=== PATIENT | male | born 1965 | race African-American/Black ===

== ENCOUNTER 2019-03-22 12:02 | Inpatient (IN) | payer MEDICARE, MEDICAID ==
[~2019-03-22] VITALS: Ht 182.9 cm; Wt 82.6 kg
--- NOTE | 2019-03-22 12:02 | NUR ---
pt bib private ambulance from [facility] on 5150 hold dts/o. pt refusing meds over there.
--- NOTE | 2019-03-22 12:04 | NUR ---
pt refuses blood draw, aware.
[2019-03-22] MEDS ORDERED: OLANZAPINE 5 MG TABLET PO ONE (12:15)
--- NOTE | 2019-03-22 12:16 | NUR ---
pt refuses md mirella aware.
--- NOTE | 2019-03-22 12:20 | NUR ---
pt medically cleared to go to [facility]. transfer pending on bed availability.
--- NOTE | 2019-03-22 12:22 | NUR ---
pt eating hospital sandwich with good apetite.
[2019-03-22] MEDS ORDERED: TEMAZEPAM 7.5 MG CAPSULE PO PRN (14:15)
[2019-03-22] MEDS ORDERED: MAGNESIUM HYDROXIDE 30 ML LIQUID UDC PO PRN (14:15)
[2019-03-22] MEDS ORDERED: ACETAMINOPHEN 325 MG TABLET PO PRN (14:15)
[2019-03-22] MEDS: DIVALPROEX 250 MG TABLET.DR PO SCH ×3 (14:30→20:22)
[2019-03-22] MEDS ORDERED: risperiDONE 0.5 MG TABLET PO SCH (14:30)
[2019-03-22] MEDS: risperiDONE 1 MG TABLET PO SCH ×3 (14:45→20:22)
[2019-03-22 15:18] VITALS: BP 139/101
[2019-03-22] MEDS: BENZTROPINE MESYLATE 0.5 MG TABLET PO SCH ×2 (20:13→20:22)
[2019-03-22 20:42] VITALS: BP 120/86
[2019-03-23 07:30] VITALS: BP 126/85
[2019-03-23] MEDS: BENZTROPINE MESYLATE 0.5 MG TABLET PO SCH ×2 (08:20→20:36)
[2019-03-23] MEDS: DIVALPROEX 250 MG TABLET.DR PO SCH ×2 (08:20→20:36)
[2019-03-23] MEDS: risperiDONE 1 MG TABLET PO SCH ×2 (08:21→20:36)
[2019-03-23 16:00] VITALS: BP 121/76
[2019-03-23 20:59] VITALS: BP 109/76
[2019-03-24 07:30] VITALS: BP 123/78
[2019-03-24] MEDS: risperiDONE 1 MG TABLET PO SCH ×2 (08:24→21:00)
[2019-03-24] MEDS: BENZTROPINE MESYLATE 0.5 MG TABLET PO SCH ×2 (08:24→21:00)
[2019-03-24] MEDS: DIVALPROEX 250 MG TABLET.DR PO SCH ×2 (08:24→21:00)
--- NOTE | 2019-03-24 11:37 | NUR ---
Initial Discharge Plan: Patient is a 53 year old male who currently lives at home [[address] [place] [address]; ] with his mother, Bhargavi Harris, who is also his LPS conservator. Angelita has sent conservatorship paperwork and it has been placed in the chart. Per patient, he may not want to return to [facility] home stating "I would like to give her a 30-day notice and find new placement". However, as patient mother is his legal conservator, patient may have to return to her home as these are her wishes. flying squad worker will continue to meet with patient and collaborate with patient, family, and MD on a safe and proper discharge.
--- NOTE | 2019-03-24 14:40 | NUR ---
Social work note: Per patient mother, Angelita Harris [[phone]], patient is LPS Conserved. Angelita and her daughter, Demetra, emailed the alleged documents to this policy writer sales. supervisor cemetery workers received and reviewed documents which indicated patient was LPS conserved, however, the documents had on February 14, 2018. supervisor cemetery workers called public guardian [[phone]] and spoke with patient coordinator front desk who stated that patient had not been conserved since 2012 per records on file. supervisor cemetery workers then requested to speak with duty worker for the day. supervisor cemetery workers left a voicemail requesting call back from duty worker for the day. supervisor cemetery workers currently awaiting call back. supervisor cemetery workers then called and spoke with Angelita, patient mother, and informed her that the conservatorship paperwork that was sent was currently . Per Angelita, she believes that patient is still conserved and that she just sent the wrong paperwork. supervisor cemetery workers requested updated conservatorship be sent if she has it. Angelita agreed. supervisor cemetery workers will continue to follow-up. For now, a Riese petition has been filed by the MD as patient is currently refusing medications.
[2019-03-24 16:00] VITALS: BP 123/92
[2019-03-24 20:06] VITALS: BP 123/76
[2019-03-25 07:30] VITALS: BP 115/79
[2019-03-25] MEDS: DIVALPROEX 250 MG TABLET.DR PO SCH ×2 (08:22→20:43)
[2019-03-25] MEDS: risperiDONE 1 MG TABLET PO SCH (08:22)
[2019-03-25] MEDS: BENZTROPINE MESYLATE 0.5 MG TABLET PO SCH ×2 (08:22→20:43)
--- NOTE | 2019-03-25 14:52 | NUR ---
LPS Conservatorship Note Upon admission, patient came with incomplete conservatorship paperwork and then the unit was notified that conservatorship had . Today, Lori Tomas LAUNDRY OPERATOR FINISHING received updated LPS conservatorship paperwork which indicates the LPS conservatorship is in full force. Angelita Harris ([phone]) has reis 4, 5, 6, 7 and 8. We now have detain and treat for patient and so his status is now LPS conserved on the unit. Prior to updated paperwork being received, patient asked for a WRIT. In compliance with Patients' Rights, Lori spoke with Sandy Hearing Rewriter ([phone]) and was advised that pt. no longer has rights to a WRIT due to his conserved status. She suggested we call the Elementary School Tutor and Bipin Macedo RN spoke with Rachele Bedoya [phone], energy attorney, who confirmed that the pt. has no right to a WRIT hearing. Patient spoke to Rachele Bedoya too, in this script writer's presence, who then advised Hellen INGRAM that the patient was not comprehending his status or the situation and that she would have his own public health microbiologist call him. Updated conservatorship placed in the patient's chart. Dr Austin, assigned psychiatrist was present on the unit and is aware of the situation and patient's legal status: LPS CONSERVED.
[2019-03-25] MEDS ORDERED: OLANZAPINE 10 MG VIAL IM PRN (15:00)
[2019-03-25] MEDS: OLANZAPINE ZYDIS 5 MG TAB.RAPDIS PO SCH ×2 (15:00→20:44)
--- NOTE | 2019-03-25 15:51 | NUR ---
PT REFUSES TO BELIEVED HE IS CONSERVED. BELIEVES HIS RIGHTS HAVE ALL BEEN VIOLATED. PT STATES THAT ACCORDING TO PRESIDENT PALMER VILLASEÑOR, HE IS ABSOLVED OF HIS CONSERVATORSHIP DUE TO ZOROASTRIANISM REASONS, AND THAT THE PENTAGON AND PRESIDENT GRIS HAVE BEEN NOTIFIED OF HIS RIGHTS VIOLATION. PT IS QUITE DELUSIONAL, HYPERRELIGIOUS, AND GRANDIOSE AT THIS TIME. REORIENTED TO REALITY. NO COMBATIVE BEHAVIOR NOTED AT THIS TIME.
[2019-03-25 16:00] VITALS: BP 144/97
[2019-03-25 20:53] VITALS: BP 106/63
--- NOTE | 2019-03-26 06:13 | NUR ---
GPS: Remain calm and cooperative. occ reading note book quietly. no agitation noted. compliant with medications and care. slept 8:30 hrs through the night. sitting in day room, watching tv. continue monitoring for safety.
[2019-03-26 07:30] VITALS: BP 133/93
[2019-03-26] MEDS: BENZTROPINE MESYLATE 0.5 MG TABLET PO SCH ×2 (08:32→20:08)
[2019-03-26] MEDS: DIVALPROEX 250 MG TABLET.DR PO SCH ×2 (08:32→20:07)
[2019-03-26] MEDS: OLANZAPINE ZYDIS 5 MG TAB.RAPDIS PO SCH ×2 (08:32→20:08)
[2019-03-26] MEDS: risperiDONE 1 MG TABLET PO SCH ×2 (08:32→16:16)
[2019-03-26 16:00] VITALS: BP 135/95
--- NOTE | 2019-03-26 18:24 | NUR ---
GPS:RECEIVED PATIENT ALERT ORIENTED, AMBULATES IN THE HALLWAY, CALM AND COOPERATIVE, MED COMPLIANT, NO APPARENT DISTRESS, ON NON SKID SOCKS ALL THE TIME,DENIES SUICIDAL AND HOMICIDAL IDEATION WILL CONTINUE MONITOR
[2019-03-26 19:55] VITALS: BP 140/100
--- NOTE | 2019-03-27 05:59 | NUR ---
GPS: Remain isolative and quiet .patient calm and cooperative with medications and care. no agitation noted. slept 8:30 hrs through the night. denies SI at this time. resting in bed comfortably. continue plan of care.
[2019-03-27 07:30] VITALS: BP 136/97
[2019-03-27] MEDS: DIVALPROEX 250 MG TABLET.DR PO SCH ×2 (08:19→20:14)
[2019-03-27] MEDS: BENZTROPINE MESYLATE 0.5 MG TABLET PO SCH ×2 (08:19→20:14)
[2019-03-27] MEDS: risperiDONE 1 MG TABLET PO SCH ×2 (08:19→17:09)
[2019-03-27] MEDS: OLANZAPINE ZYDIS 5 MG TAB.RAPDIS PO SCH ×2 (08:19→20:14)
[2019-03-27 16:00] VITALS: BP 120/79
[2019-03-27 20:00] VITALS: BP 117/82
[2019-03-28 07:30] VITALS: BP 169/108
[2019-03-28] MEDS: OLANZAPINE ZYDIS 5 MG TAB.RAPDIS PO SCH (08:11)
[2019-03-28] MEDS: risperiDONE 1 MG TABLET PO SCH (08:11)
[2019-03-28] MEDS: BENZTROPINE MESYLATE 0.5 MG TABLET PO SCH ×2 (08:11→20:11)
[2019-03-28] MEDS: DIVALPROEX 250 MG TABLET.DR PO SCH ×3 (08:11→16:35)
--- NOTE | 2019-03-28 10:42 | NUR ---
FIREARMS REPORT: MARQUISE has completed and submitted a [employer] report for a 5150 DTS/DTO certification.
[2019-03-28] MEDS ORDERED: risperiDONE 0.25 MG TABLET PO ONE (11:15)
[2019-03-28] MEDS ORDERED: risperiDONE 1 MG TABLET PO ONE (11:30)
[2019-03-28 16:01] VITALS: BP 145/98
[2019-03-28] MEDS: risperiDONE 2 MG TABLET PO SCH (16:35)
[2019-03-28] MEDS ORDERED: risperiDONE 1 MG TABLET PO SCH (17:00)
--- NOTE | 2019-03-28 18:23 | NUR ---
patient Remain calm and cooperative and clam . no agitation noted. compliant with medications and care. sitting in day room, watching TV . continue monitoring for safety.
[2019-03-28 20:03] VITALS: BP 112/70
[2019-03-28] MEDS ORDERED: OLANZAPINE 10 MG VIAL IM PRN (20:30)
--- NOTE | 2019-03-29 05:53 | NUR ---
GPS: Remain calm and cooperative. occ reading note book quietly. no agitation noted. compliant with medications and care. slept 6:30 hrs through the night. sitting in day room, watching tv. continue monitoring for safety.
[2019-03-29 07:30] VITALS: BP 142/96
[2019-03-29 08:14] LABS: BILIRUBIN,DIRECT 0.1 mg/dL (0.0-0.2); BILIRUBIN,TOTAL 0.3 mg/dL (0.2-1.0); MAGNESIUM 1.8 mg/dL (1.8-2.4); PHOSPHOROUS 3.6 mg/dL (2.5-4.9); POTASSIUM 3.9 mmol/L (3.5-5.1)
[2019-03-29 08:17] LABS: BASOPHILS % (AUTO) 0.4 % (0.0-2.0); EOSINOPHILS % (AUTO) 0.5 % (0.0-7.0); HEMATOCRIT 37.8 % (36.7-47.1); HEMOGLOBIN 12.4 g/dL (12.5-16.3); LYMPHOCYTES # (AUTO) 0.8 K/uL (20.0-40.0); LYMPHOCYTES % (AUTO) 19.3 % (20.5-51.5); MEAN CORPUSCULAR HEMOGLOBIN 28.7 uug (23.8-33.4); MEAN CORPUSCULAR HGB CONC 33 g/dL (32.5-36.3); MEAN CORPUSCULAR VOLUME 87.5 fL (73.0-96.2); MONOCYTES # (AUTO) 0.2 K/uL (2.0-10.0); MONOCYTES % (AUTO) 5.7 % (0.0-11.0); NEUTROPHILS # (AUTO) 3.2 K/uL (1.8-8.9); NEUTROPHILS % (AUTO) 74.1 % (38.5-71.5); PLATELET COUNT (AUTO) 161 K/uL (152-348); RED BLOOD CELL COUNT(AUTO) 4.32 MIL/uL (4.06-5.63); WHITE BLOOD COUNT (AUTO) 4.4 K/uL (3.6-10.2)
[2019-03-29] MEDS: risperiDONE 2 MG TABLET PO SCH (08:24)
[2019-03-29] MEDS: DIVALPROEX 250 MG TABLET.DR PO SCH ×2 (08:24→12:29)
[2019-03-29] MEDS: BENZTROPINE MESYLATE 0.5 MG TABLET PO SCH ×2 (08:24→20:16)
--- NOTE | 2019-03-29 10:10 | NUR ---
Late Entry for 03/28/19 LPS Conservatorship Note: (ZE # : [id number]) Pt. repeated stated throughout the day that he had a WRIT hearing tomorrow. At 1448, Ottoniel PRESTON found a fax notification that pt. had a WRIT hearing tomorrow and that [facility] needed to provide transportation. This lyric writer spoke with Sunitha at [address] ([phone]). Sunitha confirmed that the courts had to go through the motions but that patient's LPS conservatorship status was in place and noted by the [address]. Sunitha confirmed it was not necessary to transport this patient to court tomorrow. Naldo, computer education teacher, was notified as well as Ahmet's patient's nurse.
[2019-03-29 15:27] VITALS: BP 136/78
[2019-03-29] MEDS: risperiDONE-M 0.5 MG TAB.RAPDIS PO SCH (17:30)
--- NOTE | 2019-03-29 18:14 | NUR ---
WHEN OFFERED 5 PM MEDICATION TO PT, PT IS LOUD AND ANGRY ON APPROACH, YELLING OUT" SHE TRIED TO POISON ME"..EXPLAIN TO PT MEDICATION DOSAGE WAS CHANGED,AND PSYCHIATRIST ALREADY SPOKE WITH HIM.FINALLY PATIENT TOOK THE MEDICATION.
--- NOTE | 2019-03-29 19:50 | NUR ---
Patient received while walking in the hallway. AAO x3. No acute distress was noted. Delusional and paranoidal. Seemed agitated. No SI. Compliant with medications. Continue to monitor.
[2019-03-29 20:01] VITALS: BP 131/96
[2019-03-29] MEDS: LORAZEPAM 1 MG TABLET PO PRN (20:16)
[2019-03-30 07:30] VITALS: BP 149/109
[2019-03-30] MEDS: BENZTROPINE MESYLATE 0.5 MG TABLET PO SCH ×2 (08:27→20:07)
[2019-03-30] MEDS: LORAZEPAM 1 MG TABLET PO PRN (08:27)
[2019-03-30] MEDS: risperiDONE-M 0.5 MG TAB.RAPDIS PO SCH (08:27)
[2019-03-30] MEDS ORDERED: INVEGA SUSTENNA 234 MG IM ONE (11:45)
[2019-03-30] MEDS: DIVALPROEX 500 MG TABLET.DR PO SCH ×2 (11:57→20:07)
--- NOTE | 2019-03-30 12:11 | NUR ---
Discharge planning: thermometer production worker called and spoke with patient mother/LPS conservator, Angelita Harris [[phone]], regarding patient progress and discharge plan. Per Angelita, she stated she was going through a "hard time" as her daughter was recently put in the hospital for medical complications and states that she herself had a recent "minor operation for a cyst". thermometer production worker acknowledged Angelita current situation and offered emotional and supportive counseling. thermometer production worker then facilitated conversation about patient progress and informed her that patient is still symptomatic and presenting with paranoid thought process and delusions of grandeur. Angelita stated that she would like to have patient come home with her, but is hesitant as she is getting older and is not sure she could properly care for him. thermometer production worker reminded Angelita that as patient LPS conservator, she has the power to place patient in a locked facility [i.e. SNF or elsewhere] if she chose to do so. Angelita expressed understanding and states she will think about it and call this insurance underwriter back.
[2019-03-30 16:00] VITALS: BP 146/96
--- NOTE | 2019-03-30 18:33 | NUR ---
GPS : RECEIVED PATIENT AMBULATES IN HALLWAY, PATIENT COMPLIANT WITH MEDICATION, STILL PREOCCUPIED ABOPUT THOUGHTS OF SAVING THE WORLD WITH PRESIDENT KASI, PATIENT PARANOID WITH THE TREATMENT AND MEDICATION, HOWEVER COMPLIANT WITH MEDS, CONTINUE MONITOR, ON AWOL PRECAUTION
[2019-03-30 22:45] VITALS: BP 129/93
--- NOTE | 2019-03-31 06:23 | NUR ---
Pt slept x5 hrs. Took all due HS meds. Woke up around 0400 and stood in the hallway holding his Bible being hyperreligious. Pt sitting at edge of bed at this time. No acute distress. Will cont to monitor.
[2019-03-31 07:30] VITALS: BP 119/88
[2019-03-31] MEDS: BENZTROPINE MESYLATE 0.5 MG TABLET PO SCH ×2 (08:21→20:22)
[2019-03-31] MEDS: DIVALPROEX 500 MG TABLET.DR PO SCH ×2 (08:21→20:23)
[2019-03-31 16:00] VITALS: BP 130/93
--- NOTE | 2019-03-31 16:10 | NUR ---
Discharge planning: Per patient mother/LPS conservator, Angelita aHrris [[phone]], patient is enrolled at [facility] [[address] [place] [address]; ] and she would like patient to be a part of the [facility] program. tipple worker called the [facility] [[phone]] and spoke with Kelly, mental health clinical correctional supply supervisor, regarding patient admission. Per Kelly, patient is currently part of outreach and she would like to fully enroll him upon discharge. Per Kelly, she suggests to call back once patient is ready to discharge to schedule and intake appointment. tipple worker to follow-up.
--- NOTE | 2019-03-31 18:58 | NUR ---
Pt received awake, AOx3, ambulating steadily down the hallway with bible in hand. Pt assessed, no acute distress or pain reported. Pt showered yesterday. Pt is cooperative with staff and care provided. Pt is hesitant but compliant with PO medication administration, and checked for pocketing of pills. Pt denies SI/HI at this time, not responding to external stimuli, and able to CFS. Pt has continued to be hyperreligious throughout the shift, denying anxiety. Will continue to monitor Pt for safety and endorse to oncoming nurse.
--- NOTE | 2019-03-31 19:45 | NUR ---
Patient received while walking in the hallway. AAO x3. No acute distress was noted. Delusional and paranoidal. Seemed agitated.No SI. Compliant with medications. Continue to monitor.
[2019-03-31 20:49] VITALS: BP 133/90
--- NOTE | 2019-04-01 07:00 | NUR ---
GPS: Remain calm and cooperative. occ reading note book quietly. no agitation noted. compliant with medications and care. slept 7 hrs through the night. sitting in day room, watching tv. continue monitoring for safety.
[2019-04-01 07:30] VITALS: BP 132/95
[2019-04-01] MEDS: BENZTROPINE MESYLATE 0.5 MG TABLET PO SCH ×2 (09:35→20:13)
[2019-04-01] MEDS: DIVALPROEX 500 MG TABLET.DR PO SCH ×2 (09:35→20:13)
[2019-04-01] MEDS: risperiDONE 1 MG TABLET PO SCH ×2 (13:59→20:13)
[2019-04-01 16:00] VITALS: BP 133/92
[2019-04-01 19:48] VITALS: BP 131/93
--- NOTE | 2019-04-02 06:41 | NUR ---
Pt in TV room at this time. Had shower in AM. Slept 9.0 hrs. Refused blood draw in AM, research instrumentation technician advised to ask him again later.
[2019-04-02 07:30] VITALS: BP 148/99
[2019-04-02] MEDS: risperiDONE 1 MG TABLET PO SCH ×2 (08:39→20:16)
[2019-04-02] MEDS: BENZTROPINE MESYLATE 0.5 MG TABLET PO SCH ×2 (08:40→20:17)
[2019-04-02] MEDS: DIVALPROEX 500 MG TABLET.DR PO SCH ×2 (08:40→20:17)
[2019-04-02 16:18] VITALS: BP 135/91
[2019-04-02 20:52] VITALS: BP 120/88
[2019-04-03 07:30] VITALS: BP 126/93
[2019-04-03] MEDS: risperiDONE 1 MG TABLET PO SCH ×2 (08:53→20:38)
[2019-04-03] MEDS: DIVALPROEX 500 MG TABLET.DR PO SCH ×2 (08:53→20:38)
[2019-04-03] MEDS: BENZTROPINE MESYLATE 0.5 MG TABLET PO SCH ×2 (08:53→20:38)
[2019-04-03] MEDS ORDERED: HYDROCORTISONE 1% CREAM 30 GM TUBE TP PRN (11:45)
[2019-04-03 16:00] VITALS: BP 142/96
--- NOTE | 2019-04-03 18:43 | NUR ---
Gps/Tube Worker-Less anxious, compliant with his routine oral meds., attended his group therapy. Requesting to talk to Dredge Hand tomorrow, claimed he broke his tooth left lower side and wanting to have it checked. Per pt. he goes to [facility] for check ups.
[2019-04-03 19:51] VITALS: BP 121/78
[2019-04-04] MEDS ORDERED: OLANZAPINE 10 MG VIAL IM PRN (01:15)
[2019-04-04 07:30] VITALS: BP 150/100
[2019-04-04] MEDS: DIVALPROEX 500 MG TABLET.DR PO SCH ×2 (08:15→20:36)
[2019-04-04] MEDS: BENZTROPINE MESYLATE 0.5 MG TABLET PO SCH ×2 (08:15→20:37)
[2019-04-04] MEDS: risperiDONE 1 MG TABLET PO SCH ×2 (08:16→20:36)
[2019-04-04 15:47] VITALS: BP 142/104
--- NOTE | 2019-04-04 16:24 | NUR ---
Discharge planning: farmworker turkey farm called and spoke with patient mother/LPS conservator, Angelita Harris [[phone]], regarding patient progress and discharge plan. farmworker turkey farm initiated conversation about patient placement once ready for discharge. Per Angelita, she would like patient to go to a locked facility when ready. Angelita states she does not feel she can properly care for patient at this time. farmworker turkey farm agreeable and will send out SNF referrals. farmworker turkey farm faxed SNF referral to [facility] [[address], [place] [address]; ]. farmworker turkey farm awaiting call back from technical project coordinator. Addendum: 04/06/19 at 1207 by ERIC MARQUEZ Patient not accepted to [facility] due to no bed availability.
[2019-04-04 20:15] VITALS: BP 124/97
[2019-04-05 07:30] VITALS: BP 160/100
[2019-04-05 08:00] VITALS: BP 135/99
[2019-04-05] MEDS: DIVALPROEX 500 MG TABLET.DR PO SCH ×2 (08:11→20:34)
[2019-04-05] MEDS: BENZTROPINE MESYLATE 0.5 MG TABLET PO SCH ×2 (08:12→20:34)
[2019-04-05] MEDS: risperiDONE 1 MG TABLET PO SCH ×2 (08:12→20:33)
[2019-04-05] MEDS ORDERED: CLONIDINE HCL 0.1 MG TABLET PO PRN (11:15)
[2019-04-05 15:44] VITALS: BP 127/97
[2019-04-05 19:58] VITALS: BP 136/93
[2019-04-06 07:30] VITALS: BP 142/101
[2019-04-06] MEDS: DIVALPROEX 500 MG TABLET.DR PO SCH ×2 (08:06→20:27)
[2019-04-06] MEDS: risperiDONE 1 MG TABLET PO SCH ×2 (08:06→20:27)
[2019-04-06] MEDS: BENZTROPINE MESYLATE 0.5 MG TABLET PO SCH ×2 (08:07→20:27)
--- NOTE | 2019-04-06 12:07 | NUR ---
Discharge planning: adult protective caseworker sent SNF inquiry to [facility] [[address], [place] [address]; ]. Patient has been accepted to facility when ready fro discharge. adult protective caseworker called and spoke with patient mother/LPS conservator, Angelita Harris [[phone]], who states she is agreeable with this placement.
--- NOTE | 2019-04-06 12:32 | NUR ---
Discharge planning: biscuit factory worker called and spoke with Kelly, mental health clinical melter supervisor open hearth furnace, at [facility] [[address], [place] [address]; ] regarding patient discharge plan. biscuit factory worker requested return phone call.
[2019-04-06] MEDS ORDERED: HOME MED MISCELLANEOUS XX SCH (13:00)
[2019-04-06] MEDS ORDERED: INVEGA SUSTENNA IM ONE (13:45)
[2019-04-06 16:00] VITALS: BP 144/103
[2019-04-06] MEDS: LORAZEPAM 0.5 MG TABLET PO SCH (17:00)
--- NOTE | 2019-04-06 17:51 | NUR ---
PATIENT IS ALERT AND ORIENTED X4,HYPERVERBAL MANIC DISORGANIZED AND FLIGHT OF IDEAS. COMPLIANT WITH ALL MEDICATION
--- NOTE | 2019-04-06 17:54 | NUR ---
patient refused 5pm Ativan ,he state that i don't want it. remains anxiety about discharge plan .
[2019-04-06 20:30] VITALS: BP 131/99
--- NOTE | 2019-04-06 22:00 | NUR ---
received to care, lying in bed, isolative, with the blanket over his head. he was pleasant upon approach. compliant with medications and staff direction. as of 2200, he appears to be asleep. no distress noted. will continue to monitor closely.
[2019-04-07 07:30] VITALS: BP 155/93
--- NOTE | 2019-04-07 08:22 | NUR ---
DC NOTE: Patient will be discharged to [facility] [[address] [place] [address]; ] and transportation will be provided by ambulance at 11:00am. Please arrange ambulance transportation for this patient. Acceptance to facility was received by sherly Danielle faculty instructor, who states they are ready to accept the patient today. Patient is AxOx3, denies suicidal ideation, is able to plan for self-care, and is agreeable with discharge plan. night worker has called and spoken with patient mother/LPS Conservator, Angelita Harris [[phone]], who is aware and agreeable with discharge plan. Patient will follow-up with Dr. Austin [psychiatrist] and Dr. Barber [air valve mechanic] at the facility. Patient has also been provided with mental health resources including [facility] , [facility] , and the National Suicide Prevention Lifeline .
[2019-04-07] MEDS: DIVALPROEX 500 MG TABLET.DR PO SCH (08:46)
[2019-04-07] MEDS: risperiDONE 1 MG TABLET PO SCH (08:47)
[2019-04-07] MEDS: BENZTROPINE MESYLATE 0.5 MG TABLET PO SCH (08:47)
[2019-04-07] MEDS: LORAZEPAM 0.5 MG TABLET PO SCH (08:50)
[2019-04-07] MEDS ORDERED: risperiDONE 0.5 MG TABLET PO SCH (09:00)
--- NOTE | 2019-04-07 09:48 | NUR ---
Gps/Planer Stone- Called [facility], spoked to Shelbie Merida(Business Job Titles) report was given.
[2019-04-07 11:29] VITALS: BP 139/86
--- NOTE | 2019-04-07 11:40 | NUR ---
Gps?child welfare counselor- Patient was discharged via ambulance to [facility], w/ no complaints noted. All belongings was given back to patient except a white blanket claimed he does not want to take w/ him it was not his, shoe laces removed, pt. req. Discharged in [facility], w/ no complaints noted.
== END 2019-04-07 11:40 | DRG 885 ==
LOC: ER 12:02 → GPS 13:57
PROVIDERS: ADMIT Psychiatry & Neurology Psychosomatic Medicine; ATTEND Registered Nurse
DX: F25.0 Schizoaffective disorder, bipolar type (principal); F01.50 Vascular dementia, unspecified severity, without behavioral disturbance, psychotic disturbance, mood disturbance, and anxiety; Z91.19 Patient's noncompliance with other medical treatment and regimen; F20.0 Paranoid schizophrenia; Z91.14 Patient's other noncompliance with medication regimen
CPT/HCPCS: 36415; 83735; 84100; 85025; A4663; J2358; J3490